=== PATIENT | male | born 1940 | race Asian ===

== ENCOUNTER → 2018-10-29 | Outpatient (CLI) | payer OTHER | LOC: COL.RAD 14:55 | DX: I70.0 Atherosclerosis of aorta (principal); N13.2 Hydronephrosis with renal and ureteral calculous obstruction ==

== ENCOUNTER 2018-12-26 14:30 | Emergency (ER) | payer OTHER ==
[~2018-12-26] VITALS: Ht 175.3 cm; Wt 69.5 kg
[2018-12-26 14:44] VITALS: TEMP 98.2
[2018-12-26] MEDS ORDERED: COREG 6.256.25 MG/TA PO (15:29)
[2018-12-26] MEDS ORDERED: PRIL40 PO (15:32)
[2018-12-26] MEDS ORDERED: PLAVIX 75MG TAB75 MG PO (15:33)
[2018-12-26] MEDS ORDERED: ASPIRIN E.C. 8181 MG PO (15:34)
[2018-12-26] MEDS ORDERED: LIPITOR20 MG PO (15:35)
[2018-12-26] MEDS ORDERED: [UNRECOGNIZED DRUG - OTHER] (15:38)
[2018-12-26] MEDS ORDERED: [UNRECOGNIZED DRUG - OTHER] PO (15:42)
[2018-12-26] MEDS ORDERED: [UNRECOGNIZED DRUG - CODE] PO (15:42)
[2018-12-26] MEDS ORDERED: [UNRECOGNIZED DRUG - OTHER] PO (15:44)
[2018-12-26 17:30] VITALS: BP 124/67; PULSE 69
== END 2018-12-26 17:55 | disposition home or self-care (01) ==
LOC: COL.ER 14:30 → ICU 16:20 → COL.ER 16:20
DX: T18.128A Food in esophagus causing other injury, initial encounter (principal); E11.9 Type 2 diabetes mellitus without complications; I50.9 Heart failure, unspecified; I25.10 Atherosclerotic heart disease of native coronary artery without angina pectoris; Z95.0 Presence of cardiac pacemaker; Z87.891 Personal history of nicotine dependence; Z87.442 Personal history of urinary calculi; Z79.02 Long term (current) use of antithrombotics/antiplatelets; Z79.82 Long term (current) use of aspirin
CPT/HCPCS: J2370; J2704; J7030